=== PATIENT | female | born 1950 | race Caucasian/White ===

== ENCOUNTER 2021-06-26 08:09 | Outpatient (CLI) | payer OTHER | END 2021-06-26 08:12 | disposition home or self-care (01) | LOC: RX STUDY 08:09 | PROVIDERS: ATTEND Internal Medicine Gastroenterology | DX: K56.600 Partial intestinal obstruction, unspecified as to cause (principal); K56.609 Unspecified intestinal obstruction, unspecified as to partial versus complete obstruction; C18.9 Malignant neoplasm of colon, unspecified; K57.92 Diverticulitis of intestine, part unspecified, without perforation or abscess without bleeding ==

== ENCOUNTER 2024-06-05 10:34 | Outpatient (CLI) | payer OTHER ==
[2024-06-05 11:57] LABS: CREATININE SERUM 0.76 mg/dL (0.55-1.02); GFR 75.02
== END 2024-06-05 10:40 | disposition home or self-care (01) ==
LOC: LAB 10:34
PROVIDERS: ATTEND Radiology Diagnostic Radiology
DX: K59.01 Slow transit constipation (principal)

== ENCOUNTER 2024-06-08 07:25 | Outpatient (CLI) | payer OTHER | END 2024-06-08 07:33 | disposition home or self-care (01) | LOC: TOM 07:25 | PROVIDERS: ATTEND Surgery | DX: K57.30 Diverticulosis of large intestine without perforation or abscess without bleeding (principal); K59.01 Slow transit constipation | CPT/HCPCS: 74018; 74178; Q9965 ==